=== PATIENT | female | born 1940 | race Caucasian/White ===

== ENCOUNTER → 2017-04-13 | Outpatient (CLI) | payer MEDICARE, OTHER ==
[~2017-04-13] MED LIST: ACET500 PO; ACETAMINOPHEN500 MG PO; ALLERGY MEDICAT25 MG PO; ASCO250CH PO; ASPI325EC PO; BUSP10 PO; BUSP5 PO; CRANBERRY450 MG PO; Calcium 600 MG1 EACH PO; DICL25ER TOP; FISH1000 PO; LOSA25 PO; MELA3 PO; Multiple Vitam1 EAC1 PO; NAPR220 PO; Natural Vita200 UNIT PO; OMEP20ER PO; PRESERVISION A1 EACH PO; RANI150 PO; ROXICODONE5 MG PO; SIMV10 PO; TRIA80TC TOP; TRIHYD253B PO; Xalatan2.5 ML BOTHEYES; ZYRTEC10 M2 PO; Zocor20 MG PO
== END | disposition home or self-care (01) ==
LOC: LAB EV 11:35
DX: S81.801A Unspecified open wound, right lower leg, initial encounter (principal)
CPT/HCPCS: 87070; 87205

== ENCOUNTER 2017-05-18 17:50 | Inpatient (IN) | payer MEDICARE, OTHER ==
[~2017-05-18] VITALS: Ht 162.6 cm; Wt 96.6 kg
[~2017-05-18 17:50] MED LIST changes: -ACETAMINOPHEN500 MG PO; -ASPI325EC PO; -MELA3 PO; -RANI150 PO; -ROXICODONE5 MG PO; -Xalatan2.5 ML BOTHEYES
[2017-06-01] MEDS ORDERED: RANI150 PO (14:16)
[2017-06-01] MEDS ORDERED: MELA3 PO (14:17)
[2017-06-19] MEDS ORDERED: Xalatan2.5 ML BOTHEYES (11:15)
[2017-06-19] MEDS ORDERED: ASPI325EC PO (13:53)
[2017-06-19] MEDS ORDERED: ROXICODONE5 MG PO (13:55)
[2017-06-19] MEDS ORDERED: ACETAMINOPHEN500 MG PO (13:55)
[2017-06-20 04:59] LABS: BASOPHILS ABSOLUTE AUTO 0.04 K/mm3 (0.00-0.23); BASOPHILS PERCENT AUTO 0 % (0-2); EOSINOPHILS ABSOLUTE AUTO 0.07 K/mm3 (0.00-0.68); EOSINOPHILS PERCENT AUTO 1 % (0-6); Hemoglobin 13.1 g/dL (11.5-16.0); IMMATURE GRAN ABSOLUTE AUTO 0.03 K/mm3 (0.00-0.10); IMMATURE GRAN PERCENT AUTO 0 % (0-1); LYMPHOCYTES ABSOLUTE AUTO 0.93 K/mm3 (0.84-5.20); LYMPHOCYTES PERCENT AUTO 9 % (21-46); MONOCYTES PERCENT AUTO 8 % (4-13); Mean Corpuscular HGB 31.6 pg (26.0-34.0); Mean Corpuscular HGB Conc 34.5 g/dL (31.5-36.5); Mean Corpuscular Volume 92 fL (80-100); Mean Platelet Volume 9.8 fL (9.1-12.4); NEUTROPHILS PERCENT AUTO 82 % (41-73); Platelet Count 212 K/mm3 (150-400); RDW Coefficient Variation 12.5 % (11.7-14.2); RDW Standard Deviation 42.1 fL (35.1-46.3); Red Blood Cell Count 4.15 M/mm3 (3.80-5.20); White Blood Cell Count 10.67 K/mm3 (4.00-11.30)
[2017-06-20 05:30] LABS: Magnesium, Blood 2.1 mg/dL (1.6-2.4)
[2017-06-20 05:31] LABS: Anion Gap 7 mmol/L (6-16); Blood Urea Nitrogen 13 mg/dL (8-24); Bun/Creatinine Ratio 14.8 (12.0-20.0); CO2, Blood 28 mmol/L (21-32); Calcium, Blood 8.7 mg/dL (8.5-10.1); Chloride, Blood 103 mmol/L (98-108); Creatinine, Blood 0.88 mg/dL (0.40-1.00); Glomerular Filtration Rate >60 (60-); Glucose, Blood 129 mg/dL (70-99); Potassium, Blood 3.1 mmol/L (3.5-5.5); Sodium, Blood 138 mmol/L (136-145)
== END 2017-06-21 14:24 | disposition home or self-care (01) | DRG 470 ==
LOC: SURS 06-19 10:43 → PRE IP 06-19 13:30 → SURS 06-19 16:04
PROVIDERS: Orthopaedic Surgery
PROC: 0SRC0J9 Replacement of Right Knee Joint with Synthetic Substitute, Cemented, Open Approach (ICD-10-PCS; principal; 2017-06-19 12:45)
DX: M17.11 Unilateral primary osteoarthritis, right knee (principal); E78.5 Hyperlipidemia, unspecified; I12.9 Hypertensive chronic kidney disease with stage 1 through stage 4 chronic kidney disease, or unspecified chronic kidney disease; N18.3 Chronic kidney disease, stage 3 (moderate); E66.9 Obesity, unspecified; Z68.37 Body mass index [BMI] 37.0-37.9, adult; Z88.2 Allergy status to sulfonamides; Z88.8 Allergy status to other drugs, medicaments and biological substances; Z91.040 Latex allergy status; Z79.899 Other long term (current) drug therapy; Z87.891 Personal history of nicotine dependence
CPT/HCPCS: 36415; 73560-RT; 80048; 83735; 85025; 88300; 97110; 97116; 97162; 97530; C1713; C1776; G8978; G8979; J0171; J0690; J0735; J1885; J2250; J2405; J2765; J2795; J3010; J7120